=== PATIENT | male | born 1985 | race Hispanic/Latino ===

== ENCOUNTER 2019-03-24 13:17 | Emergency (ER) | payer SELFPAY ==
[~2019-03-24] VITALS: Ht 165.1 cm; Wt 65.8 kg
--- NOTE | 2019-03-24 13:49 | Diagnostic Imaging Report ---
EXAMINATION: FINGER RT - HOPD INDICATION: Trauma COMPARISON: None FINDINGS: No acute fracture or dislocation. Soft tissue swelling of the thumb. No substantial degenerative change. IMPRESSION: Right thumb soft tissue swelling without underlying acute osseous injury. Signed by: Micky Bassett MD on 03/24/2019 1:45 PM
== END 2019-03-24 14:19 | disposition home or self-care (01) ==
LOC: FSED 13:17
DX: S67.01XA Crushing injury of right thumb, initial encounter (principal); W20.8XXA Other cause of strike by thrown, projected or falling object, initial encounter; Y99.0 Civilian activity done for income or pay
CPT/HCPCS: 99283